=== PATIENT | female | born 1955 | race Caucasian/White ===

== ENCOUNTER → 2017-12-02 | Outpatient (CLI) | payer BC ==
[~2017-12-02] MED LIST: COZAAR50 M1 PO; METFORMIN HYDR850 MG PO; SUNMARK OMEPRAZ20 MG PO; VIBRAMYCIN100 MG PO
== END | disposition home or self-care (01) ==
LOC: RAD 10:51
DX: M25.512 Pain in left shoulder (principal); Z91.81 History of falling